=== PATIENT | male | born 1945 | race Caucasian/White ===

== ENCOUNTER 2023-07-11 09:11 | Day surgery (SDC) | payer MEDICARE ==
[2023-07-06 09:58] VITALS: BMI 20.9
[2023-07-11] MEDS ORDERED: Bupivacaine PF 0.5% 30 ML VIAL ONE (10:31)
[2023-07-11] MEDS ORDERED: fentaNYL 50 mcg/mL 1 mL Vial ONE ×3 (11:15→13:27)
[2023-07-11] MEDS ORDERED: PROPOFOL 20 ML ONE (11:15)
[2023-07-11] MEDS ORDERED: Lidocaine 2% PF 5 ML VIAL ONE (11:15)
[2023-07-11] MEDS ORDERED: Dexamethasone 4 mg/ml Vial ONE (11:15)
[2023-07-11] MEDS ORDERED: CEFAZOLIN 2 GM VIAL ONE (11:25)
[2023-07-11] MEDS ORDERED: ePHEDrine Sulfate 50 MG/10 ML VIAL ONE (12:02)
== END 2023-07-11 15:30 | disposition home or self-care (01) ==
LOC: EDBD → CSHSDC 09:11
PROVIDERS: ATTEND Podiatrist Foot & Ankle Surgery
PROC: 0SGM0JZ Fusion of Right Metatarsal-Phalangeal Joint with Synthetic Substitute, Open Approach (ICD-10-PCS; principal; 2023-07-11)
PROC: 0QSN04Z Reposition Right Metatarsal with Internal Fixation Device, Open Approach (ICD-10-PCS; 2023-07-11)
DX: M20.11 Hallux valgus (acquired), right foot (principal); M20.41 Other hammer toe(s) (acquired), right foot; M77.41 Metatarsalgia, right foot; K21.9 Gastro-esophageal reflux disease without esophagitis; Z96.653 Presence of artificial knee joint, bilateral; Z79.899 Other long term (current) drug therapy
CPT/HCPCS: 28285 ×4; 28750; 73620; C1713 ×8; J3010; J1100; J2001; J2704; S0020

== ENCOUNTER 2023-10-11 15:46 | Outpatient (CLI) | payer MEDICARE | END 2023-10-11 15:47 | disposition home or self-care (01) | LOC: CSHRAD 15:46 | PROVIDERS: ATTEND Internal Medicine Rheumatology | DX: M05.79 Rheumatoid arthritis with rheumatoid factor of multiple sites without organ or systems involvement (principal); M25.511 Pain in right shoulder; M25.512 Pain in left shoulder ==